=== PATIENT | male | born 1985 | race Caucasian/White ===

== ENCOUNTER 2022-01-30 20:45 | Emergency (ER) | payer SELFPAY ==
[2022-01-30] MEDS ORDERED: Ketorolac Tromethamine 60 MG/2 ML VIAL ONE (21:44)
== END 2022-01-30 22:18 | disposition home or self-care (01) ==
LOC: MADERS 20:45
DX: M10.9 Gout, unspecified (principal)
CPT/HCPCS: 96372; 99283; J1885